=== PATIENT | male | born 1960 | race Caucasian/White ===

== ENCOUNTER 2021-10-04 20:54 | Inpatient (IN) | payer BC, SELFPAY ==
[2021-10-04] MEDS ORDERED: Nitroglycerin 0.4 MG TAB 1 EACH ONE (21:24)
[2021-10-04] MEDS ORDERED: Aspirin Chewable 81 MG TAB ONE (21:24)
[2021-10-04 21:27] LABS: #Basophils 0.1 thou/uL (0.0-0.2); #Eosinphils 0.1 thou/uL (0.0-0.7); #Lymphocytes 1.5 thou/uL (1.20-3.40); #Monocytes 0.5 thou/uL (0.11-0.59); #Neutrophils 5.3 thou/uL (1.40-6.50); %Basophils 0.8 % (0.0-1.0); %Eosinophils 0.7 % (0.0-10.0); %Lymphocytes 20.4 % (21.0-51.0); %Monocytes 6.5 % (0.0-10.0); %Neutrophils 71.5 % (42.0-75.0); Hemoglobin 14.9 g/dL (14.0-18.0); Mean Corpuscular HGB CONC 35.5 g/dL (32.0-36.0); Mean Corpuscular Hemoglobin 34.1 pg (27.0-31.0); Mean Platelet Volume 6.7 fL (7.4-10.4); Platelet Count 218 thou/uL (130-400); RBC Distribution Width 11.2 % (11.5-14.5); Red Blood Cell (RBC) Count 4.37 mill/uL (4.70-6.10); White Blood Cell (WBC) Count 7.4 thou/uL (4.8-10.8)
[2021-10-04 21:37] LABS: INR-International Normal Ratio 0.9; Prothrombin Time 12.4 sec (12.0-14.7)
[2021-10-04] MEDS ORDERED: Morphine 4 MG/ML VIAL ONE ×2 (21:41→22:27)
[2021-10-04 21:46] LABS: ALT (SGPT) 15 U/L (8-55); AST (SGOT) 15 U/L (5-34); Albumin 3.9 g/dL (3.5-5.0); Alkaline Phosphatase 95 U/L (40-110); Anion Gap 20 mmol/L (10-20); BUN (Urea Nitrogen) 14 mg/dL (8.4-25.7); Bilirubin, Total 0.4 mg/dL (0.2-1.2); Calc. Creatinine Clearance 0 mL/min (70-130); Calcium 9.5 mg/dL (7.8-10.44); Carbon Dioxide 24 mmol/L (22-29); Chloride 95 mmol/L (98-107); Magnesium 1.9 mg/dL (1.6-2.6); Potassium 4.3 mmol/L (3.5-5.1); Protein, Total 6.9 g/dL (6.0-8.3); Sodium 135 mmol/L (136-145)
[2021-10-04 21:51] LABS: Glucose 596 mg/dL (70-105)
[2021-10-04] MEDS ORDERED: Lidocaine Viscous Sol 2% 15 ml UD Cup ONE (23:01)
[2021-10-04] MEDS ORDERED: Mag-Al 1200 mg/1200 mg/30 ML UDCUP ONE (23:01)
[2021-10-04] MEDS ORDERED: Nitroglycerin 2% Ointment 1 INCH/1 GM Packet ONE (23:01)
[2021-10-04] MEDS ORDERED: Enoxaparin Sodium 40 MG/0.4 ML SYRINGE SC SCH (23:45)
[2021-10-04] MEDS ORDERED: Bisacodyl 5 MG TAB PO PRN (23:52)
[2021-10-04] MEDS ORDERED: Senokot S 8.6-50 MG TAB PO PRN (23:52)
[2021-10-04] MEDS ORDERED: Ondansetron PF 4 MG/2 ML Vial IVP PRN (23:52)
[2021-10-04] MEDS ORDERED: Morphine 2 MG/ML VIAL SLOW IVP PRN (23:57)
[2021-10-04] MEDS ORDERED: Melatonin 3 MG TAB PO PRN (23:57)
[2021-10-04] MEDS ORDERED: Nitroglycerin 0.4 MG TAB (25 Tab Bottle) SL PRN (23:58)
[2021-10-04] MEDS ORDERED: Pantoprazole 40 MG VIAL IVP SCH (23:59)
[2021-10-05] MEDS ORDERED: Dextrose 50% Abboject 50 ML SYRINGE SLOW IVP PRN (00:26)
[2021-10-05] MEDS ORDERED: Dextrose 5% in Water 1,000 ML IV PRN (00:26)
[2021-10-05] MEDS ORDERED: hydrALAZINE 20 MG/ML VIAL SLOW IVP PRN (00:30)
[2021-10-05 00:39] VITALS: BMI 24.3
[2021-10-05] MEDS: Sodium Chloride 0.9% 1,000 ML IV SCH ×2 (01:03→11:57)
[2021-10-05] MEDS ORDERED: Nicotine 21 MG PATCH TD SCH ×2 (01:15→21:00)
[2021-10-05] MEDS: HumaLOG 300 UNITS/3 ML VIAL SC PRN ×4 (01:15→22:57)
[2021-10-05 01:29] LABS: Troponin I 0.018 ng/mL (< 0.028)
[2021-10-05] MEDS: Morphine 2 MG/ML VIAL SLOW IVP PRN ×4 (02:01→21:50)
[2021-10-05 05:30] LABS: #Eosinphils 0.1 thou/uL (0.0-0.7); #Lymphocytes 2.6 thou/uL (1.20-3.40); #Monocytes 0.7 thou/uL (0.11-0.59); #Neutrophils 3.9 thou/uL (1.40-6.50); %Basophils 0.1 % (0.0-1.0); %Eosinophils 1.1 % (0.0-10.0); %Lymphocytes 36.1 % (21.0-51.0); %Monocytes 9.9 % (0.0-10.0); %Neutrophils 52.8 % (42.0-75.0); Mean Corpuscular HGB CONC 35.3 g/dL (32.0-36.0); Mean Corpuscular Hemoglobin 34.1 pg (27.0-31.0); Mean Corpuscular Volume 96.8 fL (78.0-98.0); Mean Platelet Volume 6.8 fL (7.4-10.4); Platelet Count 211 thou/uL (130-400); RBC Distribution Width 11.4 % (11.5-14.5); White Blood Cell (WBC) Count 7.3 thou/uL (4.8-10.8)
[2021-10-05 05:33] LABS: ALT (SGPT) 12 U/L (8-55); AST (SGOT) 14 U/L (5-34); Albumin 3.6 g/dL (3.5-5.0); Alkaline Phosphatase 82 U/L (40-110); Anion Gap 15 mmol/L (10-20); BUN (Urea Nitrogen) 14 mg/dL (8.4-25.7); Bilirubin, Total 0.6 mg/dL (0.2-1.2); Calc. Creatinine Clearance 117 mL/min (70-130); Calcium 8.9 mg/dL (7.8-10.44); Carbon Dioxide 26 mmol/L (22-29); Cardiac Risk 4.7 (Less than 4.5); Chloride 104 mmol/L (98-107); Cholesterol 205 mg/dl (< 200 Desired); Globulin 2.3 g/dL (2.4-3.5); Glucose 144 mg/dL (70-105); HDL Cholesterol 44 mg/dL (>60 Neg Risk); LDL Cholesterol, Calculated 118 mg/dL; Protein, Total 5.9 g/dL (6.0-8.3); Sodium 141 mmol/L (136-145); Triglycerides 214 mg/dL (Less than 150); Troponin I 0.025 ng/mL (< 0.028)
[2021-10-05] MEDS ORDERED: Atorvastatin Calcium 40 MG TAB PO SCH (09:00)
[2021-10-05] MEDS ORDERED: Iopamidol 370 76% 100 ML VIAL ONE (09:02)
[2021-10-05] MEDS ORDERED: Iopamidol 370 76% 50 ML VIAL FS ONE (09:02)
[2021-10-05] MEDS: Gabapentin 400 MG CAP PO SCH ×2 (09:08→21:49)
[2021-10-05] MEDS: Acetaminophen 325 MG TAB PO PRN (09:08)
[2021-10-05] MEDS: Pantoprazole 40 MG VIAL IVP SCH (09:09)
[2021-10-05] MEDS ORDERED: Communication Order-Pharmacy FS SCH ×2 (10:15)
[2021-10-05] MEDS ORDERED: Amlodipine 5 MG TAB PO SCH (10:15)
[2021-10-05] MEDS ORDERED: Lisinopril 20 MG TAB PO SCH (10:15)
[2021-10-05] MEDS ORDERED: Lidocaine 1% (PF) 30 ML VIAL ONE (10:44)
[2021-10-05] MEDS ORDERED: Midazolam HCl 2 mg/2 ml Vial ONE ×2 (11:38→12:30)
[2021-10-05] MEDS ORDERED: Fentanyl 100 MCG/2 ML VIAL ONE (11:38)
[2021-10-05 12:12] LABS: SARS-CoV-2 PCR by NAA Not Detected (NotDetected)
[2021-10-05] MEDS ORDERED: Clopidogrel Bisulfate 300 MG TAB ONE (12:57)
[2021-10-05] MEDS ORDERED: Heparin 10,000 UNITS/ 10 ML VIAL ONE (12:57)
[2021-10-05] MEDS ORDERED: Nitroglycerin 100MG/250ML BOT 250 ML ONE (13:23)
[2021-10-05] MEDS ORDERED: hydrALAZINE 20 MG/ML VIAL ONE (13:23)
[2021-10-05] MEDS ORDERED: Sodium Chloride 0.9% 1,000 ML IV SCH (13:45)
[2021-10-05] MEDS ORDERED: Morphine 2 MG/ML VIAL ONE (14:38)
[2021-10-05] MEDS ORDERED: Enoxaparin Sodium 40 MG/0.4 ML SYRINGE SC SCH (21:00)
[2021-10-05] MEDS: Icosapent Ethyl 1 GM CAPSULE PO SCH (21:49)
[2021-10-06] MEDS: Morphine 2 MG/ML VIAL SLOW IVP PRN (02:22)
[2021-10-06 05:05] LABS: #Eosinphils 0.1 thou/uL (0.0-0.7); #Lymphocytes 1.3 thou/uL (1.20-3.40); #Monocytes 0.7 thou/uL (0.11-0.59); #Neutrophils 6.3 thou/uL (1.40-6.50); %Basophils 0.1 % (0.0-1.0); %Eosinophils 1.4 % (0.0-10.0); %Lymphocytes 15.2 % (21.0-51.0); %Monocytes 8.2 % (0.0-10.0); %Neutrophils 75.1 % (42.0-75.0); Hemoglobin 13.6 g/dL (14.0-18.0); Mean Corpuscular HGB CONC 33.9 g/dL (32.0-36.0); Mean Corpuscular Hemoglobin 33.5 pg (27.0-31.0); Mean Corpuscular Volume 98.8 fL (78.0-98.0); Mean Platelet Volume 6.9 fL (7.4-10.4); Platelet Count 176 thou/uL (130-400); RBC Distribution Width 11.4 % (11.5-14.5); Red Blood Cell (RBC) Count 4.05 mill/uL (4.70-6.10); White Blood Cell (WBC) Count 8.3 thou/uL (4.8-10.8)
[2021-10-06 05:30] LABS: ALT (SGPT) 11 U/L (8-55); AST (SGOT) 14 U/L (5-34); Albumin 3.2 g/dL (3.5-5.0); Alkaline Phosphatase 80 U/L (40-110); Anion Gap 12 mmol/L (10-20); BUN (Urea Nitrogen) 12 mg/dL (8.4-25.7); Bilirubin, Total 0.9 mg/dL (0.2-1.2); Calc. Creatinine Clearance 119 mL/min (70-130); Calcium 8.3 mg/dL (7.8-10.44); Carbon Dioxide 24 mmol/L (22-29); Chloride 102 mmol/L (98-107); Globulin 2.4 g/dL (2.4-3.5); Glucose 239 mg/dL (70-105); Potassium 4.3 mmol/L (3.5-5.1); Protein, Total 5.6 g/dL (6.0-8.3); Sodium 134 mmol/L (136-145)
[2021-10-06] MEDS: HumaLOG 300 UNITS/3 ML VIAL SC PRN ×2 (06:07→11:36)
[2021-10-06] MEDS: glipiZIDE 10 MG TAB PO SCH ×2 (08:30→16:33)
[2021-10-06] MEDS: Icosapent Ethyl 1 GM CAPSULE PO SCH (08:32)
[2021-10-06] MEDS: Gabapentin 400 MG CAP PO SCH (08:32)
[2021-10-06] MEDS: Pantoprazole 40 MG VIAL IVP SCH (08:33)
[2021-10-06] MEDS ORDERED: Amlodipine 5 MG TAB PO SCH (09:00)
[2021-10-06] MEDS ORDERED: Atorvastatin Calcium 40 MG TAB PO SCH (09:00)
[2021-10-06] MEDS ORDERED: Non-Formulary Item 1 EACH (Lisinopril [Lisinopril] 40 MG Tablet) PO SCH (09:00)
[2021-10-06] MEDS ORDERED: Aspirin 81 mg Enteric Coated Tablet PO SCH (09:00)
[2021-10-06] MEDS ORDERED: Lisinopril 20 MG TAB PO SCH (09:00)
[2021-10-06] MEDS ORDERED: Clopidogrel Bisulfate 75 MG TAB PO SCH (09:00)
[2021-10-06 15:24] VITALS: BP 131/69; TEMP 98.3
[2021-10-06] MEDS: Acetaminophen 325 MG TAB PO PRN (16:33)
== END 2021-10-06 17:05 | disposition home or self-care (01) | DRG 247 ==
LOC: ERS 20:54 → 2SW 23:17 → OBSVTOIN 10-05 13:22
PROVIDERS: ADMIT Internal Medicine; ATTEND Internal Medicine
PROC: 027034Z Dilation of Coronary Artery, One Artery with Drug-eluting Intraluminal Device, Percutaneous Approach (ICD-10-PCS; principal; 2021-10-05)
PROC: 4A023N7 Measurement of Cardiac Sampling and Pressure, Left Heart, Percutaneous Approach (ICD-10-PCS; 2021-10-05)
PROC: B2111ZZ Fluoroscopy of Multiple Coronary Arteries using Low Osmolar Contrast (ICD-10-PCS; 2021-10-05)
PROC: B2121ZZ Fluoroscopy of Single Coronary Artery Bypass Graft using Low Osmolar Contrast (ICD-10-PCS; 2021-10-05)
PROC: B2151ZZ Fluoroscopy of Left Heart using Low Osmolar Contrast (ICD-10-PCS; 2021-10-05)
DX: I25.700 Atherosclerosis of coronary artery bypass graft(s), unspecified, with unstable angina pectoris (principal); I10 Essential (primary) hypertension; I25.10 Atherosclerotic heart disease of native coronary artery without angina pectoris; E78.5 Hyperlipidemia, unspecified; F17.210 Nicotine dependence, cigarettes, uncomplicated; E11.65 Type 2 diabetes mellitus with hyperglycemia; Z20.822 Contact with and (suspected) exposure to COVID-19; I25.2 Old myocardial infarction; Z79.82 Long term (current) use of aspirin; Z79.84 Long term (current) use of oral hypoglycemic drugs; Z79.02 Long term (current) use of antithrombotics/antiplatelets; Z79.891 Long term (current) use of opiate analgesic; Z79.899 Other long term (current) drug therapy; Z95.1 Presence of aortocoronary bypass graft; Z95.5 Presence of coronary angioplasty implant and graft; Z82.49 Family history of ischemic heart disease and other diseases of the circulatory system; Z84.89 Family history of other specified conditions
CPT/HCPCS: 36415; 36416; 71045; 74176; 80053; 80061; 83735; 84484; 85025; 85347; 85610; 85730; 92928; 92979; 93005; 93010; 93306; 93458; 93798; 96372; 96374; 96375; 96376; 99152; 99153; C1753; C1769; C9113; C9600; G0378; J0360; J1644; J1650; J1815; J2001; J2250; J2270; J2405; J3010; J7050; Q9967; U0003; U0005

== ENCOUNTER 2021-12-10 21:45 | Inpatient (IN) | payer SELFPAY ==
[2021-12-11 00:46] VITALS: BMI 23.2
[2021-12-11] MEDS ORDERED: hydrALAZINE 20 MG/ML VIAL SLOW IVP PRN (01:06)
[2021-12-11] MEDS ORDERED: Dextrose 50% Abboject 50 ML SYRINGE SLOW IVP PRN (01:22)
[2021-12-11] MEDS ORDERED: Dextrose 5% in Water 1,000 ML IV PRN (01:22)
[2021-12-11] MEDS ORDERED: HumaLOG 300 UNITS/3 ML VIAL SC PRN (01:22)
[2021-12-11] MEDS ORDERED: Ondansetron PF 4 MG/2 ML Vial IVP PRN (01:22)
[2021-12-11] MEDS ORDERED: Acetaminophen 650 MG Suppository PR PRN (01:22)
[2021-12-11] MEDS: Morphine 4 MG/ML VIAL SLOW IVP PRN ×6 (02:19→23:53)
[2021-12-11] MEDS: Enoxaparin Sodium 80 MG/0.8 ML SYRINGE SC SCH ×2 (02:19→14:52)
[2021-12-11 04:11] LABS: #Lymphocytes 1.6 thou/uL (1.20-3.40); #Monocytes 0.7 thou/uL (0.11-0.59); %Basophils 0.4 % (0.0-1.0); %Eosinophils 0.1 % (0.0-10.0); %Lymphocytes 30.4 % (21.0-51.0); %Monocytes 13.1 % (0.0-10.0); %Neutrophils 55.9 % (42.0-75.0); Hemoglobin 13.8 g/dL (14.0-18.0); Mean Corpuscular HGB CONC 34.3 g/dL (32.0-36.0); Mean Corpuscular Hemoglobin 33.8 pg (27.0-31.0); Mean Corpuscular Volume 98.7 fL (78.0-98.0); Mean Platelet Volume 6.9 fL (7.4-10.4); Platelet Count 142 thou/uL (130-400); RBC Distribution Width 12.3 % (11.5-14.5); Red Blood Cell (RBC) Count 4.07 mill/uL (4.70-6.10); White Blood Cell (WBC) Count 5.3 thou/uL (4.8-10.8)
[2021-12-11 04:31] LABS: Anion Gap 17 mmol/L (10-20); BUN (Urea Nitrogen) 13 mg/dL (8.4-25.7); Calc. Creatinine Clearance 114 mL/min (70-130); Calcium 8.7 mg/dL (7.8-10.44); Carbon Dioxide 23 mmol/L (22-29); Chloride 101 mmol/L (98-107); Estimated GFR 102; Glucose 76 mg/dL (70-105); Sodium 137 mmol/L (136-145)
[2021-12-11] MEDS ORDERED: Aspirin Chewable 81 MG TAB PO SCH (09:00)
[2021-12-11] MEDS ORDERED: traMADol HCl 50 MG TAB PO PRN (10:01)
[2021-12-11] MEDS ORDERED: Gabapentin 400 MG CAP PO SCH (11:00)
[2021-12-11] MEDS ORDERED: Ascorbic Acid 500 mg Chewable Tablet PO SCH (11:00)
[2021-12-11] MEDS ORDERED: Atorvastatin Calcium 40 MG TAB PO SCH (11:00)
[2021-12-11] MEDS ORDERED: Cholecalciferol (Vitamin D3) 400 UNITS TAB PO SCH (11:00)
[2021-12-11] MEDS ORDERED: Lisinopril 20 MG TAB PO SCH (11:00)
[2021-12-11] MEDS ORDERED: Clopidogrel Bisulfate 75 MG TAB PO SCH (11:00)
[2021-12-11] MEDS ORDERED: Amlodipine 5 MG TAB PO SCH (11:00)
[2021-12-11] MEDS: Acetaminophen 325 MG TAB PO PRN ×2 (12:31→20:46)
[2021-12-11] MEDS ORDERED: Nitroglycerin 2% Ointment 1 INCH/1 GM Packet TOP SCH (14:00)
[2021-12-11] MEDS ORDERED: NIFEdipine XL 30 MG TAB PO SCH (14:00)
[2021-12-11] MEDS: Nicotine 21 MG PATCH TD SCH (14:55)
[2021-12-11] MEDS: metFORMIN 500 MG TAB PO SCH (17:20)
[2021-12-11] MEDS: Ondansetron ODT 4 MG TAB PO PRN (19:38)
[2021-12-11] MEDS: NIFEdipine XL 30 MG TAB PO SCH (20:45)
[2021-12-11] MEDS: Gabapentin 400 MG CAP PO SCH (20:45)
[2021-12-11] MEDS: Nitroglycerin 2% Ointment 1 INCH/1 GM Packet TOP SCH (20:46)
[2021-12-11 21:05] LABS: Critical Call Chem Troponin I 2NO.AB1; Troponin I 0.608 ng/mL (< 0.028)
[2021-12-12] MEDS: Enoxaparin Sodium 80 MG/0.8 ML SYRINGE SC SCH ×2 (02:16→14:35)
[2021-12-12] MEDS: Morphine 4 MG/ML VIAL SLOW IVP PRN ×4 (04:25→17:01)
[2021-12-12 04:52] LABS: Anion Gap 13 mmol/L (10-20); BUN (Urea Nitrogen) 17 mg/dL (8.4-25.7); Band 14 % (5-11); Calc. Creatinine Clearance 110 mL/min (70-130); Calcium 8.7 mg/dL (7.8-10.44); Carbon Dioxide 28 mmol/L (22-29); Cardiac Risk 4.1 (Less than 4.5); Chloride 97 mmol/L (98-107); Cholesterol 141 mg/dl (< 200 Desired); Estimated GFR 101; Glucose 151 mg/dL (70-105); HDL Cholesterol 34 mg/dL (>60 Neg Risk); Hemoglobin 14.2 g/dL (14.0-18.0); LDL Cholesterol, Calculated 78 mg/dL; Lymphocytes 29 % (21-51); MDiff Complete? YES; Mean Corpuscular HGB CONC 35.6 g/dL (32.0-36.0); Mean Corpuscular Hemoglobin 34.3 pg (27.0-31.0); Mean Corpuscular Volume 96.2 fL (78.0-98.0); Monocytes 3 % (0-10); Neutrophil 51 % (42-75); Platelet Count 143 thou/uL (130-400); Platelet Morphology Comment Appears Adequate; Potassium 4.1 mmol/L (3.5-5.1); RBC Distribution Width 12.2 % (11.5-14.5); RBC Morphology Normal; Reactive Lymphocytes 3 % (0-10); Red Blood Cell (RBC) Count 4.15 mill/uL (4.70-6.10); Sodium 134 mmol/L (136-145); Triglycerides 145 mg/dL (Less than 150); White Blood Cell (WBC) Count 4.9 thou/uL (4.8-10.8)
[2021-12-12 04:56] LABS: Hemoglobin A1c 7.7 % (4.0-6.0)
[2021-12-12 05:06] LABS: Critical Call Chem Troponin I 2NO.AB1; Troponin I 0.586 ng/mL (< 0.028)
[2021-12-12] MEDS: HumaLOG 300 UNITS/3 ML VIAL SC PRN ×2 (06:15→18:20)
[2021-12-12] MEDS: Gabapentin 400 MG CAP PO SCH ×2 (08:53→20:54)
[2021-12-12] MEDS: Cholecalciferol (Vitamin D3) 400 UNITS TAB PO SCH (08:53)
[2021-12-12] MEDS: Ascorbic Acid 500 mg Chewable Tablet PO SCH (08:54)
[2021-12-12] MEDS: Acetaminophen 325 MG TAB PO PRN ×2 (08:54→17:01)
[2021-12-12] MEDS: metFORMIN 500 MG TAB PO SCH ×2 (08:55→17:00)
[2021-12-12] MEDS: NIFEdipine XL 30 MG TAB PO SCH ×2 (08:55→20:55)
[2021-12-12] MEDS: Clopidogrel Bisulfate 75 MG TAB PO SCH (08:55)
[2021-12-12] MEDS: Nitroglycerin 2% Ointment 1 INCH/1 GM Packet TOP SCH ×2 (08:57→20:55)
[2021-12-12] MEDS: Lisinopril 20 MG TAB PO SCH (08:57)
[2021-12-12] MEDS: Nicotine 21 MG PATCH TD SCH (08:57)
[2021-12-12] MEDS: Aspirin 81 mg Enteric Coated Tablet PO SCH (08:58)
[2021-12-12] MEDS ORDERED: Atorvastatin Calcium 40 MG TAB PO SCH (09:00)
[2021-12-12] MEDS ORDERED: Amlodipine 5 MG TAB PO SCH (09:00)
[2021-12-12] MEDS ORDERED: diphenhydrAMINE 50 MG/ML VIAL IVP SCH (21:45)
[2021-12-13] MEDS: Enoxaparin Sodium 80 MG/0.8 ML SYRINGE SC SCH (01:33)
[2021-12-13] MEDS: Morphine 4 MG/ML VIAL SLOW IVP PRN ×6 (01:36→23:25)
[2021-12-13 04:48] LABS: Anion Gap 12 mmol/L (10-20); BUN (Urea Nitrogen) 15 mg/dL (8.4-25.7); Calc. Creatinine Clearance 120 mL/min (70-130); Calcium 8.4 mg/dL (7.8-10.44); Carbon Dioxide 27 mmol/L (22-29); Chloride 98 mmol/L (98-107); Estimated GFR 104; Glucose 183 mg/dL (70-105); Potassium 3.9 mmol/L (3.5-5.1); Sodium 133 mmol/L (136-145)
[2021-12-13 04:51] LABS: Band 1 % (5-11); Eosinophils 3 % (0-10); Hemoglobin 12.7 g/dL (14.0-18.0); Lymphocytes 40 % (21-51); MDiff Complete? YES; Mean Corpuscular HGB CONC 34.7 g/dL (32.0-36.0); Mean Corpuscular Hemoglobin 33.8 pg (27.0-31.0); Mean Corpuscular Volume 97.4 fL (78.0-98.0); Mean Platelet Volume 6.9 fL (7.4-10.4); Monocytes 8 % (0-10); Neutrophil 48 % (42-75); Platelet Count 125 thou/uL (130-400); Platelet Morphology Comment Appears Decreased; RBC Distribution Width 12.5 % (11.5-14.5); RBC Morphology Normal; Red Blood Cell (RBC) Count 3.75 mill/uL (4.70-6.10); White Blood Cell (WBC) Count 4.5 thou/uL (4.8-10.8)
[2021-12-13] MEDS: Ascorbic Acid 500 mg Chewable Tablet PO SCH (09:57)
[2021-12-13] MEDS: metFORMIN 500 MG TAB PO SCH ×2 (09:57→17:56)
[2021-12-13] MEDS: Lisinopril 20 MG TAB PO SCH (09:58)
[2021-12-13] MEDS: Gabapentin 400 MG CAP PO SCH ×2 (09:58→21:34)
[2021-12-13] MEDS: Clopidogrel Bisulfate 75 MG TAB PO SCH (09:59)
[2021-12-13] MEDS: NIFEdipine XL 30 MG TAB PO SCH ×2 (09:59→21:34)
[2021-12-13] MEDS: Aspirin 81 mg Enteric Coated Tablet PO SCH (09:59)
[2021-12-13] MEDS: Nicotine 21 MG PATCH TD SCH (09:59)
[2021-12-13] MEDS: HumaLOG 300 UNITS/3 ML VIAL SC PRN ×2 (10:08→17:57)
[2021-12-13] MEDS: Cholecalciferol (Vitamin D3) 400 UNITS TAB PO SCH (10:24)
[2021-12-13] MEDS: Ondansetron ODT 4 MG TAB PO PRN (19:40)
[2021-12-13] MEDS ORDERED: Atorvastatin Calcium 40 MG TAB PO SCH (21:00)
[2021-12-13] MEDS ORDERED: Enoxaparin Sodium 40 MG/0.4 ML SYRINGE SC SCH (21:00)
[2021-12-13] MEDS ORDERED: diphenhydrAMINE 50 MG/ML VIAL IVP SCH (23:45)
[2021-12-14] MEDS: Morphine 4 MG/ML VIAL SLOW IVP PRN ×2 (03:26→10:18)
[2021-12-14] MEDS ORDERED: NIFEdipine XL 30 MG TAB PO SCH (09:00)
[2021-12-14] MEDS: metFORMIN 500 MG TAB PO SCH (10:14)
[2021-12-14] MEDS: Aspirin 81 mg Enteric Coated Tablet PO SCH (10:15)
[2021-12-14] MEDS: Ascorbic Acid 500 mg Chewable Tablet PO SCH (10:15)
[2021-12-14] MEDS: Clopidogrel Bisulfate 75 MG TAB PO SCH (10:16)
[2021-12-14] MEDS: Lisinopril 20 MG TAB PO SCH (10:16)
[2021-12-14] MEDS: Gabapentin 400 MG CAP PO SCH (10:16)
[2021-12-14] MEDS: Cholecalciferol (Vitamin D3) 400 UNITS TAB PO SCH (10:17)
[2021-12-14] MEDS: Nicotine 21 MG PATCH TD SCH (10:18)
[2021-12-14 16:51] VITALS: TEMP 98.4
[2021-12-14 16:54] VITALS: BP 102/59
[2021-12-14] MEDS ORDERED: hydrALAZINE 20 MG/ML VIAL SLOW IVP PRN (17:47)
== END 2021-12-14 16:45 | disposition home or self-care (01) | DRG 280 ==
LOC: 2NO 21:45
PROVIDERS: ADMIT Hospitalist; ATTEND Hospitalist
PROC: 8E0ZXY6 Isolation (ICD-10-PCS; principal; 2021-12-10)
DX: I21.4 Non-ST elevation (NSTEMI) myocardial infarction (principal); U07.1 COVID-19; I25.810 Atherosclerosis of coronary artery bypass graft(s) without angina pectoris; I47.1 Supraventricular tachycardia; I10 Essential (primary) hypertension; F17.210 Nicotine dependence, cigarettes, uncomplicated; E11.65 Type 2 diabetes mellitus with hyperglycemia; E78.5 Hyperlipidemia, unspecified; Z79.82 Long term (current) use of aspirin; Z79.84 Long term (current) use of oral hypoglycemic drugs; Z79.899 Other long term (current) drug therapy; Z95.1 Presence of aortocoronary bypass graft
CPT/HCPCS: 36415; 36416; 80048; 80061; 83036; 84443; 84484; 85025; 93005; 93010; 93306; 94760; J0360; J1200; J1650; J1815; J2270; Q0162

== ENCOUNTER 2022-01-06 20:59 | Inpatient (IN) | payer BC, SELFPAY ==
[2022-01-06] MEDS ORDERED: Morphine 4 MG/ML VIAL ONE (21:33)
[2022-01-06] MEDS ORDERED: Ondansetron PF 4 MG/2 ML Vial ONE (21:33)
[2022-01-06 21:53] LABS: #Eosinphils 0.1 thou/uL (0.0-0.7); #Lymphocytes 1.7 thou/uL (1.20-3.40); #Monocytes 0.6 thou/uL (0.11-0.59); #Neutrophils 5.1 thou/uL (1.40-6.50); %Basophils 0.1 % (0.0-1.0); %Eosinophils 1.1 % (0.0-10.0); %Lymphocytes 22.7 % (21.0-51.0); %Monocytes 8.2 % (0.0-10.0); %Neutrophils 67.9 % (42.0-75.0); Hemoglobin 11.6 g/dL (14.0-18.0); Mean Corpuscular Hemoglobin 34.2 pg (27.0-31.0); Mean Corpuscular Volume 94.8 fL (78.0-98.0); Platelet Count 160 thou/uL (130-400); RBC Distribution Width 12.4 % (11.5-14.5); Red Blood Cell (RBC) Count 3.39 mill/uL (4.70-6.10); White Blood Cell (WBC) Count 7.5 thou/uL (4.8-10.8)
[2022-01-06] MEDS ORDERED: Morphine 2 MG/ML VIAL ONE (22:06)
[2022-01-06 22:15] LABS: ALT (SGPT) 12 U/L (8-55); AST (SGOT) 12 U/L (5-34); Albumin 3.3 g/dL (3.5-5.0); Alkaline Phosphatase 62 U/L (40-110); Anion Gap 15 mmol/L (10-20); BUN (Urea Nitrogen) 14 mg/dL (8.4-25.7); Bilirubin, Total 0.5 mg/dL (0.2-1.2); Calc. Creatinine Clearance 0 mL/min (70-130); Calcium 8.7 mg/dL (7.8-10.44); Carbon Dioxide 26 mmol/L (22-29); Chloride 105 mmol/L (98-107); Estimated GFR 99; Globulin 2.3 g/dL (2.4-3.5); Glucose 107 mg/dL (70-105); Potassium 3.8 mmol/L (3.5-5.1); Protein, Total 5.6 g/dL (6.0-8.3); Sodium 142 mmol/L (136-145)
[2022-01-07] MEDS ORDERED: Dextrose 5% in Water 1,000 ML IV PRN (00:30)
[2022-01-07] MEDS ORDERED: Acetaminophen 650 MG Suppository PR PRN (00:30)
[2022-01-07] MEDS ORDERED: Acetaminophen 325 MG TAB PO PRN (00:30)
[2022-01-07] MEDS ORDERED: Dextrose 50% Abboject 50 ML SYRINGE SLOW IVP PRN (00:30)
[2022-01-07] MEDS ORDERED: Ondansetron ODT 4 MG TAB PO PRN (00:30)
[2022-01-07] MEDS ORDERED: Ondansetron PF 4 MG/2 ML Vial IVP PRN (00:30)
[2022-01-07] MEDS ORDERED: Nitroglycerin 0.4 MG TAB (25 Tab Bottle) SL PRN (00:39)
[2022-01-07 01:17] VITALS: BMI 22.9
[2022-01-07] MEDS: Morphine 4 MG/ML VIAL SLOW IVP PRN ×4 (01:24→13:31)
[2022-01-07 01:47] LABS: Troponin I 0.017 ng/mL (< 0.028)
[2022-01-07 04:09] LABS: #Eosinphils 0.2 thou/uL (0.0-0.7); #Lymphocytes 2.6 thou/uL (1.20-3.40); #Monocytes 0.7 thou/uL (0.11-0.59); #Neutrophils 4.9 thou/uL (1.40-6.50); %Basophils 0.3 % (0.0-1.0); %Eosinophils 2.2 % (0.0-10.0); %Lymphocytes 31.1 % (21.0-51.0); %Monocytes 8.1 % (0.0-10.0); %Neutrophils 58.3 % (42.0-75.0); Mean Corpuscular HGB CONC 34.4 g/dL (32.0-36.0); Mean Corpuscular Hemoglobin 32.9 pg (27.0-31.0); Mean Corpuscular Volume 95.6 fL (78.0-98.0); Mean Platelet Volume 6.5 fL (7.4-10.4); Platelet Count 164 thou/uL (130-400); RBC Distribution Width 12.5 % (11.5-14.5); Red Blood Cell (RBC) Count 3.65 mill/uL (4.70-6.10); White Blood Cell (WBC) Count 8.4 thou/uL (4.8-10.8)
[2022-01-07 04:27] LABS: Anion Gap 13 mmol/L (10-20); BUN (Urea Nitrogen) 10 mg/dL (8.4-25.7); Calc. Creatinine Clearance 119 mL/min (70-130); Calcium 8.8 mg/dL (7.8-10.44); Carbon Dioxide 27 mmol/L (22-29); Chloride 105 mmol/L (98-107); Estimated GFR 104; Potassium 3.7 mmol/L (3.5-5.1); Sodium 141 mmol/L (136-145)
[2022-01-07 04:38] LABS: Troponin I 0.019 ng/mL (< 0.028)
[2022-01-07 04:39] LABS: Glucose 55 mg/dL (70-105)
[2022-01-07] MEDS: NIFEdipine XL 30 MG TAB PO SCH (09:25)
[2022-01-07] MEDS: Atorvastatin Calcium 40 MG TAB PO SCH (09:25)
[2022-01-07] MEDS: Aspirin Chewable 81 MG TAB PO SCH (09:26)
[2022-01-07] MEDS: Lisinopril 20 MG TAB PO SCH (09:26)
[2022-01-07] MEDS ORDERED: Enoxaparin Sodium 80 MG/0.8 ML SYRINGE SC SCH (09:45)
[2022-01-07 13:14] LABS: Troponin I 0.014 ng/mL (< 0.028)
[2022-01-07 18:40] LABS: Troponin I 0.016 ng/mL (< 0.028)
[2022-01-07] MEDS: Enoxaparin Sodium 80 MG/0.8 ML SYRINGE SC SCH (20:35)
[2022-01-07] MEDS ORDERED: Gabapentin 400 MG CAP PO SCH (22:15)
[2022-01-08 00:18] LABS: Troponin I 0.016 ng/mL (< 0.028)
[2022-01-08] MEDS ORDERED: Morphine 2 MG/ML VIAL SLOW IVP SCH ×2 (00:30→05:15)
[2022-01-08 04:56] LABS: #Eosinphils 0.2 thou/uL (0.0-0.7); #Lymphocytes 2.2 thou/uL (1.20-3.40); #Monocytes 0.7 thou/uL (0.11-0.59); #Neutrophils 5.3 thou/uL (1.40-6.50); %Basophils 0.4 % (0.0-1.0); %Eosinophils 2.4 % (0.0-10.0); %Lymphocytes 25.9 % (21.0-51.0); %Monocytes 8.3 % (0.0-10.0); %Neutrophils 63.1 % (42.0-75.0); Hemoglobin 11.1 g/dL (14.0-18.0); Mean Corpuscular HGB CONC 34.8 g/dL (32.0-36.0); Mean Corpuscular Hemoglobin 33.4 pg (27.0-31.0); Mean Corpuscular Volume 96.1 fL (78.0-98.0); Mean Platelet Volume 6.6 fL (7.4-10.4); Platelet Count 149 thou/uL (130-400); RBC Distribution Width 12.6 % (11.5-14.5); Red Blood Cell (RBC) Count 3.33 mill/uL (4.70-6.10); White Blood Cell (WBC) Count 8.4 thou/uL (4.8-10.8)
[2022-01-08 05:21] LABS: Anion Gap 12 mmol/L (10-20); BUN (Urea Nitrogen) 8 mg/dL (8.4-25.7); Calc. Creatinine Clearance 125 mL/min (70-130); Calcium 8.5 mg/dL (7.8-10.44); Carbon Dioxide 28 mmol/L (22-29); Chloride 101 mmol/L (98-107); Estimated GFR 105; Glucose 114 mg/dL (70-105); Potassium 4.2 mmol/L (3.5-5.1); Sodium 137 mmol/L (136-145)
[2022-01-08] MEDS: Enoxaparin Sodium 80 MG/0.8 ML SYRINGE SC SCH (08:04)
[2022-01-08] MEDS: Aspirin Chewable 81 MG TAB PO SCH (08:05)
[2022-01-08] MEDS: Atorvastatin Calcium 40 MG TAB PO SCH (08:05)
[2022-01-08] MEDS: NIFEdipine XL 30 MG TAB PO SCH (08:05)
[2022-01-08] MEDS: Lisinopril 20 MG TAB PO SCH (08:05)
[2022-01-08] MEDS: Gabapentin 400 MG CAP PO SCH ×2 (08:05→21:00)
[2022-01-08 11:19] LABS: Troponin I 0.017 ng/mL (< 0.028)
[2022-01-08] MEDS ORDERED: Ketorolac Tromethamine 30 MG/ML VIAL IVP SCH (11:30)
[2022-01-08] MEDS: Morphine 4 MG/ML VIAL SLOW IVP PRN ×4 (11:30→21:00)
[2022-01-08] MEDS: HumaLOG 300 UNITS/3 ML VIAL SC PRN ×2 (11:41→17:43)
[2022-01-08] MEDS: Nicotine 7 MG PATCH TD SCH (14:14)
[2022-01-09] MEDS: Morphine 4 MG/ML VIAL SLOW IVP PRN ×5 (00:43→15:01)
[2022-01-09] MEDS: HumaLOG 300 UNITS/3 ML VIAL SC PRN ×2 (06:23→21:21)
[2022-01-09] MEDS: NIFEdipine XL 30 MG TAB PO SCH (08:27)
[2022-01-09] MEDS: Lisinopril 20 MG TAB PO SCH (08:28)
[2022-01-09] MEDS: Aspirin Chewable 81 MG TAB PO SCH (08:28)
[2022-01-09] MEDS: Gabapentin 400 MG CAP PO SCH ×2 (08:29→21:28)
[2022-01-09] MEDS: Atorvastatin Calcium 40 MG TAB PO SCH (08:29)
[2022-01-09] MEDS ORDERED: Polyethylene Glycol 3350 17 GM Packet PO PRN (11:21)
[2022-01-09] MEDS ORDERED: Sodium Chloride 0.9% 1,000 ML IV SCH (11:30)
[2022-01-09] MEDS: Nicotine 7 MG PATCH TD SCH (12:53)
[2022-01-09] MEDS ORDERED: Iopamidol-370 76% 500 ML 1 ML ONE (13:57)
[2022-01-09] MEDS: Nitroglycerin 0.4mg/Hour PATCH TD SCH (17:20)
[2022-01-09] MEDS: Morphine 2 MG/ML VIAL SLOW IVP PRN ×2 (18:15→21:18)
[2022-01-09] MEDS: Senokot S 8.6-50 MG TAB PO SCH (21:29)
[2022-01-10] MEDS: Morphine 2 MG/ML VIAL SLOW IVP PRN ×5 (00:19→19:41)
[2022-01-10] MEDS: HumaLOG 300 UNITS/3 ML VIAL SC PRN ×2 (06:26→20:09)
[2022-01-10] MEDS ORDERED: fentaNYL Citrate/PF 100 MCG/2 ML SYRINGE ONE (08:47)
[2022-01-10] MEDS ORDERED: ePHEDrine 50 MG/ML VIAL ONE (08:54)
[2022-01-10] MEDS ORDERED: Ondansetron HCl/PF 4 MG/2 ML Vial IVP PRN (09:04)
[2022-01-10] MEDS ORDERED: PACU-Morphine 4MG/ML VIAL SLOW IVP PRN (09:04)
[2022-01-10] MEDS ORDERED: Promethazine HCl 25 MG/ML VIAL IM PRN (09:04)
[2022-01-10] MEDS ORDERED: Promethazine HCl 25 MG/ML VIAL IVPB PRN (09:04)
[2022-01-10] MEDS: Gabapentin 400 MG CAP PO SCH ×2 (09:41→19:44)
[2022-01-10] MEDS: Aspirin Chewable 81 MG TAB PO SCH (09:41)
[2022-01-10] MEDS: Atorvastatin Calcium 40 MG TAB PO SCH ×2 (09:41→19:43)
[2022-01-10] MEDS: Clopidogrel Bisulfate 75 MG TAB PO SCH (09:41)
[2022-01-10] MEDS: Lisinopril 20 MG TAB PO SCH (09:41)
[2022-01-10] MEDS: Senokot S 8.6-50 MG TAB PO SCH ×2 (09:42→20:24)
[2022-01-10] MEDS ORDERED: Bisacodyl 10 MG SUPP PR SCH (09:46)
[2022-01-10] MEDS ORDERED: Fentanyl 100 MCG/2 ML VIAL ONE (09:48)
[2022-01-10] MEDS ORDERED: Ondansetron PF 4 MG/2 ML Vial ONE (09:49)
[2022-01-10] MEDS: Nicotine 7 MG PATCH TD SCH (12:48)
[2022-01-10] MEDS ORDERED: Gabapentin 400 MG CAP PO SCH (16:45)
[2022-01-10] MEDS: Polyethylene Glycol 3350 17 GM Packet PO SCH (16:55)
[2022-01-10] MEDS: traMADol HCl 50 MG TAB PO PRN ×2 (16:56→22:40)
[2022-01-10] MEDS: Nitroglycerin 0.4mg/Hour PATCH TD SCH (16:57)
[2022-01-10] MEDS: Lidocaine 5% Patch TD SCH (19:46)
[2022-01-11] MEDS: Morphine 2 MG/ML VIAL SLOW IVP PRN ×5 (00:28→21:33)
[2022-01-11 05:06] LABS: #Eosinphils 0.6 thou/uL (0.0-0.7); #Lymphocytes 1.3 thou/uL (1.20-3.40); #Monocytes 0.7 thou/uL (0.11-0.59); %Basophils 0.3 % (0.0-1.0); %Eosinophils 9.3 % (0.0-10.0); %Monocytes 10.1 % (0.0-10.0); %Neutrophils 60.2 % (42.0-75.0); Hemoglobin 11.7 g/dL (14.0-18.0); Mean Corpuscular HGB CONC 34.7 g/dL (32.0-36.0); Mean Corpuscular Hemoglobin 33.1 pg (27.0-31.0); Mean Corpuscular Volume 95.5 fL (78.0-98.0); Mean Platelet Volume 6.6 fL (7.4-10.4); Platelet Count 168 thou/uL (130-400); RBC Distribution Width 12.6 % (11.5-14.5); Red Blood Cell (RBC) Count 3.52 mill/uL (4.70-6.10); White Blood Cell (WBC) Count 6.7 thou/uL (4.8-10.8)
[2022-01-11] MEDS: traMADol HCl 50 MG TAB PO PRN ×2 (05:12→16:07)
[2022-01-11 05:29] LABS: Anion Gap 10 mmol/L (10-20); BUN (Urea Nitrogen) 10 mg/dL (8.4-25.7); Calc. Creatinine Clearance 104 mL/min (70-130); Calcium 8.8 mg/dL (7.8-10.44); Carbon Dioxide 28 mmol/L (22-29); Chloride 100 mmol/L (98-107); Estimated GFR 100; Glucose 308 mg/dL (70-105); Potassium 4.4 mmol/L (3.5-5.1); Sodium 134 mmol/L (136-145)
[2022-01-11] MEDS: HumaLOG 300 UNITS/3 ML VIAL SC PRN ×3 (05:59→17:25)
[2022-01-11] MEDS: Gabapentin 400 MG CAP PO SCH ×3 (08:27→21:44)
[2022-01-11] MEDS: Senokot S 8.6-50 MG TAB PO SCH ×2 (08:28→21:47)
[2022-01-11] MEDS: Clopidogrel Bisulfate 75 MG TAB PO SCH (08:28)
[2022-01-11] MEDS: Lisinopril 20 MG TAB PO SCH (08:28)
[2022-01-11] MEDS: Aspirin Chewable 81 MG TAB PO SCH (08:28)
[2022-01-11] MEDS: Transdermal Patch Removal TOP SCH (08:30)
[2022-01-11] MEDS: Nicotine 7 MG PATCH TD SCH (11:25)
[2022-01-11] MEDS: Polyethylene Glycol 3350 17 GM Packet PO SCH (15:59)
[2022-01-11] MEDS: Nitroglycerin 0.4mg/Hour PATCH TD SCH (16:00)
[2022-01-11] MEDS ORDERED: Fleet Enema 133 ML BOT PR SCH (17:45)
[2022-01-11] MEDS: Atorvastatin Calcium 40 MG TAB PO SCH (21:45)
[2022-01-11] MEDS: Lidocaine 5% Patch TD SCH (21:58)
[2022-01-12] MEDS: Morphine 2 MG/ML VIAL SLOW IVP PRN (05:09)
[2022-01-12] MEDS: traMADol HCl 50 MG TAB PO PRN ×2 (08:24→14:35)
[2022-01-12] MEDS: Aspirin Chewable 81 MG TAB PO SCH (08:24)
[2022-01-12] MEDS: Lisinopril 20 MG TAB PO SCH (08:24)
[2022-01-12] MEDS: Gabapentin 400 MG CAP PO SCH ×3 (08:24→21:30)
[2022-01-12] MEDS: Clopidogrel Bisulfate 75 MG TAB PO SCH (08:24)
[2022-01-12] MEDS: Senokot S 8.6-50 MG TAB PO SCH ×2 (08:24→21:26)
[2022-01-12] MEDS: Transdermal Patch Removal TOP SCH (08:26)
[2022-01-12] MEDS ORDERED: Iopamidol-370 76% 500 ML 1 ML ONE (08:48)
[2022-01-12] MEDS ORDERED: Lidocaine 2% Viscous Solution 20 ML, Aluminum & Magnesium Hydroxide 30 ML, Donnatal Eli... SSW SCH (10:30)
[2022-01-12] MEDS ORDERED: Polyethylene Glycol 3350 17 GM Packet PO PRN (12:56)
[2022-01-12] MEDS ORDERED: Glycerin Adult Supp. (24 ct jar) PR PRN (12:56)
[2022-01-12] MEDS: Nicotine 7 MG PATCH TD SCH (14:35)
[2022-01-12] MEDS ORDERED: Acetaminophen 500 MG TAB PO SCH (17:00)
[2022-01-12] MEDS: Metoclopramide 10 MG/10 ML UDCUP PO SCH ×2 (17:42→21:25)
[2022-01-12] MEDS: Polyethylene Glycol 3350 17 GM Packet PO SCH (17:43)
[2022-01-12] MEDS: Nitroglycerin 0.4mg/Hour PATCH TD SCH (17:43)
[2022-01-12] MEDS: HumaLOG 300 UNITS/3 ML VIAL SC PRN (17:44)
[2022-01-12] MEDS ORDERED: Lactated Ringer's 500 ML IV SCH (18:30)
[2022-01-12] MEDS: Lidocaine 5% Patch TD SCH (21:26)
[2022-01-12] MEDS: Acetaminophen 500 MG TAB PO SCH (21:27)
[2022-01-12] MEDS: oxyCODONE 5 MG TAB PO PRN (21:28)
[2022-01-12] MEDS: Atorvastatin Calcium 40 MG TAB PO SCH (21:30)
[2022-01-13] MEDS: traMADol HCl 50 MG TAB PO PRN ×2 (00:57→12:07)
[2022-01-13 05:54] LABS: #Eosinphils 0.8 thou/uL (0.0-0.7); #Lymphocytes 1.7 thou/uL (1.20-3.40); #Monocytes 0.8 thou/uL (0.11-0.59); #Neutrophils 4.1 thou/uL (1.40-6.50); %Basophils 0.3 % (0.0-1.0); %Eosinophils 10.7 % (0.0-10.0); %Monocytes 11.1 % (0.0-10.0); %Neutrophils 54.9 % (42.0-75.0); Hemoglobin 11.5 g/dL (14.0-18.0); Mean Corpuscular HGB CONC 34.1 g/dL (32.0-36.0); Mean Corpuscular Hemoglobin 32.8 pg (27.0-31.0); Mean Corpuscular Volume 96.1 fL (78.0-98.0); Mean Platelet Volume 6.5 fL (7.4-10.4); Platelet Count 157 thou/uL (130-400); RBC Distribution Width 12.5 % (11.5-14.5); White Blood Cell (WBC) Count 7.5 thou/uL (4.8-10.8)
[2022-01-13 06:06] LABS: Anion Gap 12 mmol/L (10-20); BUN (Urea Nitrogen) 12 mg/dL (8.4-25.7); Calc. Creatinine Clearance 100 mL/min (70-130); Calcium 8.8 mg/dL (7.8-10.44); Carbon Dioxide 29 mmol/L (22-29); Chloride 100 mmol/L (98-107); Estimated GFR 99; Glucose 239 mg/dL (70-105); Potassium 4.4 mmol/L (3.5-5.1); Sodium 137 mmol/L (136-145)
[2022-01-13] MEDS ORDERED: Regadenoson 0.4 MG/5 ML SYRINGE ONE (08:30)
[2022-01-13] MEDS: Lisinopril 20 MG TAB PO SCH (08:57)
[2022-01-13] MEDS: Gabapentin 400 MG CAP PO SCH ×2 (08:57→15:56)
[2022-01-13] MEDS: Aspirin Chewable 81 MG TAB PO SCH (08:57)
[2022-01-13] MEDS: Acetaminophen 500 MG TAB PO SCH ×2 (08:58→15:56)
[2022-01-13] MEDS: Senokot S 8.6-50 MG TAB PO SCH (08:59)
[2022-01-13] MEDS: oxyCODONE 5 MG TAB PO PRN ×2 (08:59→15:57)
[2022-01-13] MEDS: HumaLOG 300 UNITS/3 ML VIAL SC PRN ×3 (09:00→17:49)
[2022-01-13] MEDS: Metoclopramide 10 MG/10 ML UDCUP PO SCH ×3 (09:02→17:49)
[2022-01-13] MEDS: Transdermal Patch Removal TOP SCH (09:04)
[2022-01-13] MEDS: Clopidogrel Bisulfate 75 MG TAB PO SCH (11:15)
[2022-01-13] MEDS: Nicotine 7 MG PATCH TD SCH (12:08)
[2022-01-13 15:49] VITALS: BP 161/87; TEMP 97.6
[2022-01-13] MEDS: Nitroglycerin 0.4mg/Hour PATCH TD SCH (17:13)
[2022-01-13] MEDS: Polyethylene Glycol 3350 17 GM Packet PO SCH (17:49)
== END 2022-01-13 20:40 | disposition home or self-care (01) | DRG 74 ==
LOC: ERS 20:59 → NEURO 23:18 → OBSVTOIN 01-08 10:08
PROVIDERS: ADMIT Hospitalist; ATTEND Hospitalist
PROC: 0DB98ZX Excision of Duodenum, Via Natural or Artificial Opening Endoscopic, Diagnostic (ICD-10-PCS; principal; 2022-01-10)
PROC: 0DB78ZX Excision of Stomach, Pylorus, Via Natural or Artificial Opening Endoscopic, Diagnostic (ICD-10-PCS; 2022-01-10)
DX: E11.43 Type 2 diabetes mellitus with diabetic autonomic (poly)neuropathy (principal); K31.84 Gastroparesis; I25.10 Atherosclerotic heart disease of native coronary artery without angina pectoris; K26.9 Duodenal ulcer, unspecified as acute or chronic, without hemorrhage or perforation; Z20.822 Contact with and (suspected) exposure to COVID-19; M94.0 Chondrocostal junction syndrome [Tietze]; K21.00 Gastro-esophageal reflux disease with esophagitis, without bleeding; K29.70 Gastritis, unspecified, without bleeding; F17.210 Nicotine dependence, cigarettes, uncomplicated; D64.9 Anemia, unspecified; E78.5 Hyperlipidemia, unspecified; F41.9 Anxiety disorder, unspecified; I10 Essential (primary) hypertension; K59.03 Drug induced constipation; T40.2X5A Adverse effect of other opioids, initial encounter; Z95.1 Presence of aortocoronary bypass graft; Z79.899 Other long term (current) drug therapy; Z79.02 Long term (current) use of antithrombotics/antiplatelets; Z79.82 Long term (current) use of aspirin; Z79.84 Long term (current) use of oral hypoglycemic drugs; Z95.5 Presence of coronary angioplasty implant and graft; I25.2 Old myocardial infarction
CPT/HCPCS: 36415; 36416; 71045; 71260; 71275; 74022; 78452; 80048; 80053; 83690; 84484; 85025; 88305; 88342; 93005; 93010; 93017; 94760; 96361; 96372; 96374; 96375; 96376; A9500; G0378; J1650; J2270; J2405; J2785; J3010; J3490; J7050; J7070; J7120; Q9967; U0003; U0005

== ENCOUNTER 2022-01-31 20:36 | Inpatient (IN) | payer BC ==
[2022-01-31 21:05] LABS: #Eosinphils 0.2 thou/uL (0.0-0.7); #Lymphocytes 2.2 thou/uL (1.20-3.40); #Monocytes 0.8 thou/uL (0.11-0.59); %Basophils 0.1 % (0.0-1.0); %Eosinophils 1.8 % (0.0-10.0); %Lymphocytes 23.9 % (21.0-51.0); %Monocytes 8.4 % (0.0-10.0); %Neutrophils 65.8 % (42.0-75.0); Hemoglobin 13.1 g/dL (14.0-18.0); Mean Corpuscular HGB CONC 34.9 g/dL (32.0-36.0); Mean Corpuscular Hemoglobin 33.6 pg (27.0-31.0); Mean Corpuscular Volume 96.4 fL (78.0-98.0); Mean Platelet Volume 6.9 fL (7.4-10.4); Platelet Count 188 thou/uL (130-400); RBC Distribution Width 12.8 % (11.5-14.5); White Blood Cell (WBC) Count 9.2 thou/uL (4.8-10.8)
[2022-01-31] MEDS ORDERED: Morphine 4 MG/ML VIAL ONE (21:08)
[2022-01-31] MEDS ORDERED: Aspirin 325 MG TAB ONE (21:08)
[2022-01-31] MEDS ORDERED: Ketorolac Tromethamine 30 MG/ML VIAL ONE (21:10)
[2022-01-31] MEDS ORDERED: Nitroglycerin 2% Ointment 1 INCH/1 GM Packet ONE (21:23)
[2022-01-31 21:49] LABS: ALT (SGPT) 15 U/L (8-55); AST (SGOT) 15 U/L (5-34); Albumin 4.1 g/dL (3.4-4.8); Alkaline Phosphatase 70 U/L (40-110); Anion Gap 18 mmol/L (10-20); BUN (Urea Nitrogen) 9 mg/dL (8.4-25.7); Calc. Creatinine Clearance 0 mL/min (70-130); Calcium 9.1 mg/dL (7.8-10.44); Carbon Dioxide 26 mmol/L (23-31); Chloride 103 mmol/L (98-107); Estimated GFR 101; Globulin 3.2 g/dL (2.4-3.5); Glucose 123 mg/dL (80-115); Lipase 28 U/L (8-78); Potassium 3.8 mmol/L (3.5-5.1); Protein, Total 7.3 g/dL (5.8-8.1); Sodium 143 mmol/L (136-145)
[2022-01-31 22:06] LABS: Bilirubin, Total 0.6 mg/dL (0.2-1.2)
[2022-01-31] MEDS ORDERED: Acetaminophen 500 MG TAB ONE ×2 (22:08→22:09)
[2022-01-31] MEDS ORDERED: HYDROmorphone 0.5 MG/0.5 ML SYRINGE ONE (22:47)
[2022-01-31] MEDS ORDERED: Bisacodyl 10 MG SUPP PR PRN (23:40)
[2022-01-31] MEDS ORDERED: Dextrose 5% in Water 1,000 ML IV PRN (23:40)
[2022-01-31] MEDS ORDERED: Zolpidem Tartrate 5 MG TAB PO PRN (23:40)
[2022-01-31] MEDS ORDERED: Dextrose 50% Abboject 50 ML SYRINGE SLOW IVP PRN (23:40)
[2022-01-31] MEDS ORDERED: Acetaminophen 325 MG TAB PO PRN (23:40)
[2022-01-31] MEDS ORDERED: HumaLOG 300 UNITS/3 ML VIAL SC PRN ×2 (23:40)
[2022-01-31] MEDS ORDERED: hydrALAZINE 20 MG/ML VIAL SLOW IVP PRN (23:44)
[2022-01-31] MEDS ORDERED: Aspirin 325 MG TAB PO SCH (23:45)
[2022-01-31] MEDS ORDERED: Enoxaparin Sodium 80 MG/0.8 ML SYRINGE SC SCH (23:59)
[2022-02-01 00:34] LABS: Troponin I 0.021 ng/mL (< 0.028)
[2022-02-01] MEDS ORDERED: Morphine 2 MG/ML VIAL ONE ×2 (00:36→06:03)
[2022-02-01] MEDS ORDERED: Enoxaparin Sodium 80 MG/0.8 ML SYRINGE ONE (00:36)
[2022-02-01] MEDS: Morphine 2 MG/ML VIAL SLOW IVP PRN ×2 (00:42→06:08)
[2022-02-01] MEDS ORDERED: Gabapentin 400 MG CAP PO SCH ×2 (00:45→09:00)
[2022-02-01] MEDS ORDERED: Nicotine 14 MG PATCH TD SCH (01:00)
[2022-02-01] MEDS ORDERED: Nicotine 14 MG PATCH ONE (01:52)
[2022-02-01 02:48] LABS: SARS-CoV-2 NAA Rapid Test Not Detected (NotDetected)
[2022-02-01] MEDS ORDERED: HYDROcodone/Acetaminophen 5/325 mg Tablet ONE (03:20)
[2022-02-01 03:23] LABS: #Eosinphils 0.2 thou/uL (0.0-0.7); #Lymphocytes 2.9 thou/uL (1.20-3.40); #Monocytes 0.6 thou/uL (0.11-0.59); #Neutrophils 3.8 thou/uL (1.40-6.50); %Basophils 0.1 % (0.0-1.0); %Eosinophils 3.1 % (0.0-10.0); %Lymphocytes 37.7 % (21.0-51.0); %Monocytes 8.4 % (0.0-10.0); %Neutrophils 50.7 % (42.0-75.0); Hemoglobin 11.5 g/dL (14.0-18.0); Mean Corpuscular Hemoglobin 33.7 pg (27.0-31.0); Mean Corpuscular Volume 96.4 fL (78.0-98.0); Mean Platelet Volume 7.1 fL (7.4-10.4); Platelet Count 158 thou/uL (130-400); RBC Distribution Width 12.9 % (11.5-14.5); Red Blood Cell (RBC) Count 3.42 mill/uL (4.70-6.10); White Blood Cell (WBC) Count 7.6 thou/uL (4.8-10.8)
[2022-02-01] MEDS: HYDROcodone/Acetaminophen 5/325 mg Tablet PO PRN ×2 (03:23→08:36)
[2022-02-01 03:47] LABS: Anion Gap 13 mmol/L (10-20); BUN (Urea Nitrogen) 11 mg/dL (8.4-25.7); Calc. Creatinine Clearance 50 mL/min (70-130); Calcium 8.5 mg/dL (7.8-10.44); Carbon Dioxide 26 mmol/L (23-31); Chloride 105 mmol/L (98-107); Estimated GFR 99; Glucose 110 mg/dL (80-115); Sodium 140 mmol/L (136-145); Troponin I 0.018 ng/mL (< 0.028)
[2022-02-01 03:59] VITALS: BMI 24.4
[2022-02-01] MEDS ORDERED: Nitroglycerin 2% Ointment 1 INCH/1 GM Packet TOP SCH (06:00)
[2022-02-01] MEDS ORDERED: Nitroglycerin 2% Ointment 1 INCH/1 GM Packet ONE (06:10)
[2022-02-01] MEDS ORDERED: metFORMIN 500 MG TAB PO SCH (08:00)
[2022-02-01] MEDS ORDERED: Lisinopril 20 MG TAB PO SCH (09:00)
[2022-02-01] MEDS ORDERED: Aspirin Chewable 81 MG TAB PO SCH (09:00)
[2022-02-01] MEDS ORDERED: Clopidogrel Bisulfate 75 MG TAB PO SCH (09:00)
[2022-02-01 10:31] VITALS: BP 146/81; TEMP 98
[2022-02-01] MEDS ORDERED: glipiZIDE 10 MG TAB PO SCH (17:00)
== END 2022-02-01 11:45 | disposition left against medical advice (07) | DRG 313 ==
LOC: ERS 20:36 → ERHOLD 23:22 → 2NO 02-01 06:48
PROVIDERS: ADMIT Internal Medicine; ATTEND Physician Assistant
DX: R07.89 Other chest pain (principal); F41.9 Anxiety disorder, unspecified; E11.9 Type 2 diabetes mellitus without complications; I10 Essential (primary) hypertension; F17.210 Nicotine dependence, cigarettes, uncomplicated; I25.10 Atherosclerotic heart disease of native coronary artery without angina pectoris; E78.5 Hyperlipidemia, unspecified; K26.9 Duodenal ulcer, unspecified as acute or chronic, without hemorrhage or perforation; Z71.6 Tobacco abuse counseling; Z82.49 Family history of ischemic heart disease and other diseases of the circulatory system; Z79.899 Other long term (current) drug therapy; Z79.84 Long term (current) use of oral hypoglycemic drugs; Z95.5 Presence of coronary angioplasty implant and graft; Z95.1 Presence of aortocoronary bypass graft; Z79.82 Long term (current) use of aspirin; Z79.02 Long term (current) use of antithrombotics/antiplatelets; Z87.11 Personal history of peptic ulcer disease; Z87.19 Personal history of other diseases of the digestive system; Z20.822 Contact with and (suspected) exposure to COVID-19
CPT/HCPCS: 36415; 71045; 80048; 80053; 83690; 84484; 85025; 93005; J1170; J1650; J1885; J2270; U0002